=== PATIENT | male | born 1990 | race Caucasian/White ===

== ENCOUNTER 2023-02-21 18:25 | Emergency (ER) | payer OTHER ==
[~2023-02-21] VITALS: Ht 185.4 cm; Wt 131.5 kg
[2023-02-21 18:56] VITALS: BP 141/110
== END 2023-02-21 21:30 | disposition home or self-care (01) ==
LOC: ER 18:25
DX: S81.812A Laceration without foreign body, left lower leg, initial encounter (principal); W22.8XXA Striking against or struck by other objects, initial encounter; Z23 Encounter for immunization
CPT/HCPCS: 12002; 90471; 90714; 90715; 99282-25